=== PATIENT | female | born 1990 | race Caucasian/White ===

== ENCOUNTER 2017-09-18 22:02 | Emergency (ER) | payer MEDICAID ==
[~2017-09-18] VITALS: Ht 157.5 cm; Wt 43.5 kg
[2017-09-18 23:37] VITALS: Ht 157.5 cm; Wt 43.5 kg
[2017-09-19 02:35] VITALS: BP 113/69
== END 2017-09-19 02:35 | disposition home or self-care (01) ==
LOC: ED 22:02
DX: N60.02 Solitary cyst of left breast (principal)
CPT/HCPCS: 76642; J1885

== ENCOUNTER 2017-09-19 08:33 | Emergency (ER) | payer MEDICAID ==
[~2017-09-19] VITALS: Ht 162.6 cm; Wt 42.8 kg
[2017-09-19 10:29] VITALS: BP 95/56
== END 2017-09-19 10:47 | disposition home or self-care (01) ==
LOC: ED 08:33
DX: R11.2 Nausea with vomiting, unspecified (principal); N64.4 Mastodynia; R10.9 Unspecified abdominal pain; J45.909 Unspecified asthma, uncomplicated
CPT/HCPCS: J1885; J7030; Q0162

== ENCOUNTER 2018-07-14 16:13 | Emergency (ER) | payer MEDICAID ==
[~2018-07-14] VITALS: Ht 160 cm; Wt 44.1 kg
[2018-07-14 16:17] VITALS: Ht 160 cm; Wt 44.1 kg
[2018-07-14 16:54] LABS: BASOPHIL % 0.6 % (0-2); PLATELET COUNT 207 x10^3mcL (130-400)
[2018-07-14 17:08] LABS: CALCIUM 9.5 mg/dL (8.5-10.1); CHLORIDE SERUM 103 mmol/L (98-107); CREATININE SERUM 0.7 mg/dL (0.6-1.0); GFR1 > 60 mL/min; GLUCOSE SERUM 85 mg/dL (74-106); POTASSIUM SERUM 3.9 mmol/L (3.5-5.1); SODIUM SERUM 140 mmol/L (136-145)
[2018-07-14 17:12] LABS: ALBUMIN 4.8 g/dL (3.4-5.0); ALKALINE PHOSPHATASE 34 U/L (46-116); ALT/SGPT 15 U/L (14-59); AST/SGOT 11 U/L (15-37); LIPASE 133 IU/L (73-393); TOTAL PROTEIN, SERUM 8.2 g/dL (6.4-8.2)
[2018-07-14 19:37] VITALS: BP 100/60
== END 2018-07-14 19:37 | disposition home or self-care (01) ==
LOC: ED 16:13
PROVIDERS: Emergency Medicine
DX: G43.909 Migraine, unspecified, not intractable, without status migrainosus (principal); J45.909 Unspecified asthma, uncomplicated; M54.9 Dorsalgia, unspecified
CPT/HCPCS: J1200; J2765; J7030

== ENCOUNTER 2018-07-19 09:50 | Emergency (ER) | payer MEDICAID ==
[~2018-07-19] VITALS: Ht 157.5 cm; Wt 43.7 kg
[2018-07-19 09:53] VITALS: Ht 157.5 cm; Wt 43.7 kg
[2018-07-19 10:54] LABS: BASOPHIL % 1.5 % (0-2); PLATELET COUNT 194 x10^3mcL (130-400); RED CELL DISTRIBUTION WIDTH 14.2 % (11.5-14.5)
[2018-07-19 11:05] LABS: CALCIUM 8.6 mg/dL (8.5-10.1); CARBON DIOXIDE 30.4 mmol/L (21-32); CHLORIDE SERUM 104 mmol/L (98-107); CREATININE SERUM 0.7 mg/dL (0.6-1.0); GFR1 > 60 mL/min; GLUCOSE SERUM 89 mg/dL (74-106); POTASSIUM SERUM 3.6 mmol/L (3.5-5.1); SODIUM SERUM 140 mmol/L (136-145)
[2018-07-19 13:21] VITALS: BP 91/54
== END 2018-07-19 13:21 | disposition home or self-care (01) ==
LOC: ED 09:50
PROVIDERS: Emergency Medicine
DX: G43.909 Migraine, unspecified, not intractable, without status migrainosus (principal); R10.2 Pelvic and perineal pain; R10.30 Lower abdominal pain, unspecified; J45.909 Unspecified asthma, uncomplicated; Z98.890 Other specified postprocedural states
CPT/HCPCS: J2765

== ENCOUNTER 2018-10-04 21:28 | Emergency (ER) | payer OTHER ==
[~2018-10-04] VITALS: Ht 160 cm; Wt 48.5 kg
[2018-10-04 21:51] VITALS: Ht 160 cm; Wt 48.5 kg
[2018-10-04 22:26] LABS: BASOPHIL % 0.5 % (0-2); PLATELET COUNT 166 x10^3mcL (130-400); RED CELL DISTRIBUTION WIDTH 13.5 % (11.5-14.5)
[2018-10-04 22:53] LABS: CALCIUM 8.5 mg/dL (8.5-10.1); CARBON DIOXIDE 26.5 mmol/L (21-32); CHLORIDE SERUM 102 mmol/L (98-107); CREATININE SERUM 0.8 mg/dL (0.6-1.0); GFR1 > 60 mL/min; GLUCOSE SERUM 100 mg/dL (74-106); POTASSIUM SERUM 3.5 mmol/L (3.5-5.1); SODIUM SERUM 141 mmol/L (136-145)
[2018-10-04 22:55] LABS: ALBUMIN 4.1 g/dL (3.4-5.0); ALKALINE PHOSPHATASE 33 U/L (46-116); ALT/SGPT 16 U/L (14-59); AMYLASE 33 U/L (25-115); AST/SGOT 14 U/L (15-37); LIPASE 72 IU/L (73-393); TOTAL PROTEIN, SERUM 7.6 g/dL (6.4-8.2)
[2018-10-05 01:36] VITALS: BP 104/62
== END 2018-10-05 01:37 | disposition home or self-care (01) ==
LOC: ED 21:28
PROVIDERS: Specialist
DX: B34.9 Viral infection, unspecified (principal); J45.909 Unspecified asthma, uncomplicated; G43.909 Migraine, unspecified, not intractable, without status migrainosus; R11.10 Vomiting, unspecified
CPT/HCPCS: 87804; J1885; J2405; J7030

== ENCOUNTER 2018-11-25 21:01 | Inpatient (IN) | payer OTHER | END 2018-11-27 17:27 | disposition home or self-care (01) | LOC: ED 21:01 → MU 11-26 01:34 → ED 21:01 → MU 11-26 01:34 → ED 21:01 → MU 11-27 17:27 → ED 21:01 → MU 11-26 01:34 → ED 21:01 → MU 11-26 02:22 → ED 21:01 → MU 11-26 02:05 ==

== ENCOUNTER 2019-02-16 19:10 | Emergency (ER) | payer OTHER ==
[~2019-02-16] VITALS: Ht 154.9 cm; Wt 57.2 kg
[2019-02-16 19:44] VITALS: Ht 154.9 cm; Wt 57.2 kg
[2019-02-16 21:47] VITALS: BP 98/58
== END 2019-02-16 21:47 | disposition home or self-care (01) ==
LOC: ED 19:10
DX: G43.909 Migraine, unspecified, not intractable, without status migrainosus (principal); K62.5 Hemorrhage of anus and rectum; R21 Rash and other nonspecific skin eruption; J45.909 Unspecified asthma, uncomplicated; M54.5 Low back pain
CPT/HCPCS: J0780; J1885

== ENCOUNTER 2019-04-17 10:58 | Emergency (ER) | payer SELFPAY ==
[~2019-04-17] VITALS: Ht 157.5 cm; Wt 58.5 kg
[2019-04-17 11:03] VITALS: Ht 157.5 cm; Wt 58.5 kg
[2019-04-17 13:44] VITALS: BP 128/65
== END 2019-04-17 13:44 | disposition home or self-care (01) ==
LOC: ED 10:58
DX: G43.909 Migraine, unspecified, not intractable, without status migrainosus (principal); J45.909 Unspecified asthma, uncomplicated; Z98.890 Other specified postprocedural states
CPT/HCPCS: J0780; J1885

== ENCOUNTER 2019-04-26 18:31 | Emergency (ER) | payer OTHER ==
[~2019-04-26] VITALS: Ht 154.9 cm; Wt 58.5 kg
[2019-04-26 18:39] VITALS: Ht 154.9 cm; Wt 58.5 kg
[2019-04-26 19:27] VITALS: BP 137/78
== END 2019-04-26 19:27 | disposition home or self-care (01) ==
LOC: ED 18:31
DX: J45.909 Unspecified asthma, uncomplicated (principal); G43.909 Migraine, unspecified, not intractable, without status migrainosus; Z98.890 Other specified postprocedural states
CPT/HCPCS: 87804; J2060; J2920; J7620

== ENCOUNTER 2019-06-14 09:07 | Emergency (ER) | payer OTHER ==
[~2019-06-14] VITALS: Ht 157.5 cm; Wt 58.5 kg
[2019-06-14 09:10] VITALS: Ht 157.5 cm; Wt 58.5 kg
[2019-06-14 10:12] LABS: CALCIUM 9.3 mg/dL (8.5-10.1); CARBON DIOXIDE 25.4 mmol/L (21-32); CHLORIDE SERUM 106 mmol/L (98-107); CREATININE SERUM 0.7 mg/dL (0.6-1.0); GFR1 > 60 mL/min; GLUCOSE SERUM 99 mg/dL (74-106); POTASSIUM SERUM 3.7 mmol/L (3.5-5.1); SODIUM SERUM 142 mmol/L (136-145)
[2019-06-14 11:54] VITALS: BP 94/56
== END 2019-06-14 11:54 | disposition home or self-care (01) ==
LOC: ED 09:07
PROVIDERS: Emergency Medicine
DX: J11.1 Influenza due to unidentified influenza virus with other respiratory manifestations (principal); R19.7 Diarrhea, unspecified; J45.909 Unspecified asthma, uncomplicated; G43.909 Migraine, unspecified, not intractable, without status migrainosus; Z98.890 Other specified postprocedural states
CPT/HCPCS: 87804; J1885; J2405; J7030

== ENCOUNTER 2019-09-17 19:46 | Emergency (ER) | payer OTHER ==
[~2019-09-17] VITALS: Ht 162.6 cm; Wt 60.8 kg
[2019-09-17 20:51] LABS: BASOPHIL % 0.8 % (0-2); PLATELET COUNT 245 x10^3mcL (130-400); RED CELL DISTRIBUTION WIDTH 13.3 % (11.5-14.5)
[2019-09-17 21:01] LABS: ALBUMIN 4.5 g/dL (3.4-5.0); ALKALINE PHOSPHATASE 46 U/L (46-116); ALT/SGPT 46 U/L (14-59); AST/SGOT 17 U/L (15-37); BILIRUBIN TOTAL 0.6 mg/dL (0.20-1.00); CALCIUM 9.5 mg/dL (8.5-10.1); CARBON DIOXIDE 21.5 mmol/L (21-32); CHLORIDE SERUM 102 mmol/L (98-107); CREATININE SERUM 0.8 mg/dL (0.6-1.0); GFR1 > 60 mL/min; LIPASE 93 IU/L (73-393); POTASSIUM SERUM 4.1 mmol/L (3.5-5.1); SODIUM SERUM 140 mmol/L (136-145); TOTAL PROTEIN, SERUM 8.2 g/dL (6.4-8.2)
[2019-09-17 21:05] LABS: GLUCOSE SERUM 59 mg/dL (74-106)
[2019-09-17 22:29] VITALS: BP 102/60
== END 2019-09-17 22:29 | disposition home or self-care (01) ==
LOC: ED 19:46
PROVIDERS: Emergency Medicine
DX: E16.2 Hypoglycemia, unspecified (principal); R19.7 Diarrhea, unspecified; R03.0 Elevated blood-pressure reading, without diagnosis of hypertension; G43.909 Migraine, unspecified, not intractable, without status migrainosus; J45.20 Mild intermittent asthma, uncomplicated
CPT/HCPCS: 82962; J2405; J3490; J7030

== ENCOUNTER 2019-12-18 12:07 | Emergency (ER) | payer OTHER ==
[~2019-12-18] VITALS: Ht 152.4 cm; Wt 51.7 kg
[2019-12-18 12:27] VITALS: Ht 152.4 cm; Wt 51.7 kg
[2019-12-18 14:19] LABS: BASOPHIL % 0.2 % (0-2); PLATELET COUNT 214 x10^3mcL (130-400); RED CELL DISTRIBUTION WIDTH 13.5 % (11.5-14.5)
[2019-12-18 15:12] LABS: ALBUMIN 4.7 g/dL (3.4-5.0); ALKALINE PHOSPHATASE 39 U/L (46-116); ALT/SGPT 16 U/L (14-59); AST/SGOT 12 U/L (15-37); CALCIUM 8.9 mg/dL (8.5-10.1); CARBON DIOXIDE 25.5 mmol/L (21-32); CHLORIDE SERUM 102 mmol/L (98-107); CREATININE SERUM 0.8 mg/dL (0.6-1.0); GFR1 > 60 mL/min; LIPASE 84 IU/L (73-393); POTASSIUM SERUM 3.5 mmol/L (3.5-5.1); SODIUM SERUM 141 mmol/L (136-145); TOTAL PROTEIN, SERUM 7.6 g/dL (6.4-8.2)
[2019-12-18 15:14] LABS: GLUCOSE SERUM 58 mg/dL (74-106)
[2019-12-18 17:41] VITALS: BP 98/54
== END 2019-12-18 17:41 | disposition home or self-care (01) ==
LOC: ED 12:07
PROVIDERS: Emergency Medicine
DX: R11.10 Vomiting, unspecified (principal); E16.2 Hypoglycemia, unspecified; F12.90 Cannabis use, unspecified, uncomplicated; J45.909 Unspecified asthma, uncomplicated; G43.909 Migraine, unspecified, not intractable, without status migrainosus; Z98.890 Other specified postprocedural states
CPT/HCPCS: 82962; J2405; J3490; J7030

== ENCOUNTER 2020-08-14 17:32 | Emergency (ER) | payer OTHER ==
[~2020-08-14] VITALS: Ht 157.5 cm; Wt 61.2 kg
[2020-08-14 17:46] VITALS: Ht 157.5 cm; Wt 61.2 kg
[2020-08-14 18:15] VITALS: BP 116/87
== END 2020-08-14 18:15 | disposition home or self-care (01) ==
LOC: ED 17:32
DX: S70.01XA Contusion of right hip, initial encounter (principal); M25.511 Pain in right shoulder; J45.909 Unspecified asthma, uncomplicated; G43.909 Migraine, unspecified, not intractable, without status migrainosus; R11.0 Nausea; Z98.890 Other specified postprocedural states; V48.1XXA Car passenger injured in noncollision transport accident in nontraffic accident, initial encounter; Y93.I9 Activity, other involving external motion; Y92.488 Other paved roadways as the place of occurrence of the external cause; Y99.8 Other external cause status

== ENCOUNTER 2020-09-05 14:52 | Emergency (ER) | payer OTHER, SELFPAY ==
[~2020-09-05] VITALS: Ht 157.5 cm; Wt 60.8 kg
[2020-09-05 14:55] VITALS: Ht 157.5 cm; Wt 60.8 kg
[2020-09-05 15:45] LABS: BASOPHIL % 0.5 % (0.2-1.3); PLATELET COUNT 267 x10^3mcL (179-408)
[2020-09-05 15:55] LABS: CALCIUM 9.4 mg/dL (8.5-10.1); CARBON DIOXIDE 26.5 mmol/L (21-32); CHLORIDE SERUM 103 mmol/L (98-107); CREATININE SERUM 0.7 mg/dL (0.6-1.0); GFR1 > 60 mL/min; GLUCOSE SERUM 84 mg/dL (74-106); POTASSIUM SERUM 4.2 mmol/L (3.5-5.1); SODIUM SERUM 141 mmol/L (136-145)
[2020-09-05 16:05] LABS: ALBUMIN 4.4 g/dL (3.4-5.0); ALKALINE PHOSPHATASE 46 U/L (46-116); ALT/SGPT 35 U/L (14-59); AST/SGOT 26 U/L (15-37); BILIRUBIN TOTAL 0.9 mg/dL (0.20-1.00); LIPASE 115 IU/L (73-393)
[2020-09-05] MEDS ORDERED: ONDANSETRON4 M3 PO (17:20)
[2020-09-05 18:00] VITALS: BP 120/73
== END 2020-09-05 18:00 | disposition home or self-care (01) ==
LOC: ED 14:52
PROVIDERS: Emergency Medicine
DX: K52.9 Noninfective gastroenteritis and colitis, unspecified (principal); Z20.822 Contact with and (suspected) exposure to COVID-19; J45.909 Unspecified asthma, uncomplicated; G43.909 Migraine, unspecified, not intractable, without status migrainosus; Z98.890 Other specified postprocedural states
CPT/HCPCS: J2405; J7030